=== PATIENT | male | born 1980 | race African-American/Black ===

== ENCOUNTER 2020-01-24 21:30 | Emergency (ER) | payer SELFPAY ==
[~2020-01-24] VITALS: Ht 182.9 cm; Wt 102.2 kg
[2020-01-24 21:41] VITALS: BP 194/121
[2020-01-24] MEDS ORDERED: KETOROLAC TROMETHAMINE 10 MG TABLET PO STA (21:59)
[2020-01-24] MEDS ORDERED: MAG HYDROX/ALUMINUM HYD/SIMETH 30 ML ORAL.SUSP PO ONE (22:00)
[2020-01-24] MEDS ORDERED: LIDOCAINE 2% VISCOUS 15 ML SOLUTION. SWSW ONE (22:00)
[2020-01-24] MEDS ORDERED: AMOX1TAB61 PO (22:02)
--- NOTE | 2020-01-24 22:03 | PHYS DOC ---
Adult General Chief Complaint Chief Complaint: DENTAL PROBLEM [facility] HPI Patient is a 39 year old male who presents with dental pain that started last night. The patient has also had lower right facial swelling and rates his pain as 9/10 in severity. He states he has been taking Ibuprofen at home but that has not been helping. He states he has a dentist that he can see tomorrow. Complete ROS were reviewed and found to be within normal limits, except as documented in the HPI Allergies Allergies Allergies Coded Allergies Type Severity Reaction Last Updated Verified codeine Allergy Unknown 01/24/20 Yes Physical Exam Physical Exam Constitutional: Well developed, well nourished, no acute distress, non-toxic appearance. [] HENT: Normocephalic, atraumatic, bilateral external ears normal, oropharynx mo ist, no oral exudates, nose normal. Cavitation and edema to Tooth # 32. Cardiovascular:Heart rate regular rhythm, no murmur [] Lungs & Thorax: Bilateral breath sounds clear to auscultation [] Neurologic: Alert and oriented X 3, normal motor function, normal sensory function, no focal deficits noted. [] Psychologic: Affect normal, judgement normal, mood normal. [] EKG EKG [] Radiology/Procedures Radiology/Procedures [] Course & Med Decision Making Course & Med Decision Making Pertinent Labs and Imaging studies reviewed. (See chart for details) Will give Toradol and Dental balls in ER and place on Augmentin. Dragon Disclaimer Dragon Disclaimer This electronic medical record was generated, in whole or in part, using a voice recognition dictation system. Departure Departure Impression: Primary Impression: Infected dental caries Disposition: 01 HOME, SELF-CARE Condition: STABLE Referrals: UNKNOWN PCP NAME (PCP) Patient Instructions: Carbamide Peroxide dental solution, Dental Abscess Additional Instructions: Thank you for visiting [facility]. We appreciate you trusting us with your care. If any additional problems come up don't hesitate to return to visit us. Please follow up with your primary care provider so they can plan additional care if needed and know about the problem that you had. If symptoms worsen come back to the Emergency Department. Any concerning symptoms that start such as chest pain, shortness of air, weakness or numbness on one side of the body, running high fevers or any other concerning symptoms return to the ER. You have been prescribed an antibiotic today to help fight your infection. Arnol jasso take all of the antibiotic as directed. If after 48 hours the infection is not improving, please return for more care. If the infection worsens, return to ER for additional care. Scripts Amoxicillin/Potassium Clav (AUGMENTIN 875-125 TABLET) 1 Each Tablet 1 TAB PO BID for 10 Days, #20 TAB 0 Refills Prov: EMILEE PARIKH APRN 01/24/20 EMILEE PARIKH APRN Jan 24, 2020 22:03
== END 2020-01-24 22:14 | disposition home or self-care (01) ==
LOC: ER 21:30
DX: K02.9 Dental caries, unspecified (principal); K08.89 Other specified disorders of teeth and supporting structures; Z88.5 Allergy status to narcotic agent
CPT/HCPCS: 99283

== ENCOUNTER 2020-08-27 23:56 | Emergency (ER) | payer SELFPAY ==
[~2020-08-27] VITALS: Ht 182.9 cm; Wt 97.7 kg
[~2020-08-27 23:56] MED LIST: AMOX1TAB61 PO
[2020-08-28 00:02] VITALS: BP 151/103
[2020-08-28] MEDS ORDERED: CYCL10TA2 PO (00:27)
[2020-08-28] MEDS ORDERED: TRAM-48 PO (00:28)
--- NOTE | 2020-08-28 00:29 | PHYS DOC ---
Past Medical History Past Medical History: Hypertension Past Surgical History: Other Additional Past Surgical Histo: JAW FRACTURE, CYST REMOVED R SHOULDER, L KNEE SCOPE Smoking Status: Never Smoker Alcohol Use: None General Adult EDM: Chief Complaint: BACK PAIN OR INJURY HPI: HPI: Patient is a 40 year old male presents for evaluation of lower back pain. Patient states he feel 4-5 feet on to his lower back. Patient complains of pain lumbar paraspinal l4-l5. No midline tenderness step off or deformities Patient ambulated into the ER-- no loss of b/b. Patient also has cracked tooth right upper canine. Patient states he chipped tooth when he fell. Patient denies any LOC. Review of Systems: Review of Systems: Constitutional: Denies fever or chills. [] Eyes: Denies change in visual acuity. [] HENT: Denies nasal congestion or sore throat. [positive dental pain] Respiratory: Denies cough or shortness of breath. [] Cardiovascular: Denies chest pain or edema. [] GI: Denies abdominal pain, nausea, vomiting, bloody stools or diarrhea. [] : Denies dysuria. [] Musculoskeletal: positive back pain Integument: Denies rash. [] Neurologic: Denies headache, focal weakness or sensory changes. [] Endocrine: Denies polyuria or polydipsia. [] Lymphatic: Denies swollen glands. [] Psychiatric: Denies depression or anxiety. [] Heart Score: Risk Factors: Risk Factors: DM, Current or recent (<one month) smoker, HTN, HLP, family history of CAD, obesity. Risk Scores: Score 0 - 3: 2.5% MACE over next 6 weeks - Discharge Home Score 4 - 6: 20.3% MACE over next 6 weeks - Admit for Clinical Observation Score 7 - 10: 72.7% MACE over next 6 weeks - Early Invasive Strategies Current Medications: Current Medications Medications (Trade) Dose Ordered Sig/Manda Start Time Stop Time Status Last Admin Dose Admin Cyclobenzaprine HCl (Flexeril) 10 mg 1X ONCE 08/28/20 00:30 08/28/20 00:31 UNV Tramadol HCl (Ultram) 50 mg 1X ONCE 08/28/20 00:30 08/28/20 00:31 UNV Allergies: Allergies: Allergies Coded Allergies Type Severity Reaction Last Updated Verified codeine Allergy Unknown 01/24/20 Yes Physical Exam: PE: Constitutional: Well developed, well nourished, no acute distress, non-toxic appearance. [] HENT: Normocephalic, atraumatic, bilateral external ears normal, oropharynx moist, no oral exudates, nose normal. [cracked tooth right upper canine] Eyes: PERRLA, EOMI, conjunctiva normal, no discharge. [] Neck: Normal range of motion, no tenderness, supple, no stridor. [] Cardiovascular:Heart rate regular rhythm, no murmur [] Lungs & Thorax: Bilateral breath sounds clear to auscultation [] Abdomen: Bowel sounds normal, soft, no tenderness, no masses, no pulsatile ronaldo s. [] Skin: Warm, dry, no erythema, no rash. [] Back: No tenderness, no CVA tenderness. [paraspinal tenderness l4-l5. no midline step off or deformities] Extremities: No tenderness, no cyanosis, no clubbing, ROM intact, no edema. [] Neurologic: Alert and oriented X 3, normal motor function, normal sensory function, no focal deficits noted. [no saddle anesthesia no loss of b/b] Psychologic: Affect normal, judgement normal, mood normal. [] Current Patient Data: Vital Signs: Vital Signs Date Time Temp Pulse Resp B/P (MAP) Pulse Ox O2 Delivery O2 Flow Rate FiO2 08/28/20 00:02 98.3 89 16 151/103 (119) 98 Room Air 98.3 EKG: EKG: [] Radiology/Procedures: Radiology/Procedures: [] Course & Med Decision Making: Course & Med Decision Making Pertinent Labs and Imaging studies reviewed. (See chart for details) []treated with ultram and flexeril. Xray negative for acute fracture--- unknown radiopaque suprapubic. Rx ultram and flexeril. Dragon Disclaimer: [employer] Disclaimer: This electronic medical record was generated, in whole or in part, using a voice recognition dictation system. Departure Departure Impression: Primary Impression: Back pain Additional Impression: Fracture, avulsion, tooth Disposition: HOME, SELF-CARE Condition: STABLE Referrals: UNKNOWN PCP NAME (PCP) Patient Instructions: Back Pain, Adult, Dental Pain Scripts Tramadol Hcl (ULTRAM) 50 Mg Tablet 1 TAB PO PRN Q6HRS PRN for pain MDD 4 Tablet(s) for 7 Days, #28 TAB 0 Refills Prov: LIZ HERRERA DO 08/28/20 Cyclobenzaprine Hcl (CYCLOBENZAPRINE HCL) 10 Mg Tablet 10 MG PO TID, #20 TAB Prov: LIZ HERRERA DO 08/28/20 Justicifation of Admission Dx: Justifications for Admission: Justification of Admission Dx: N/A LIZ HERRERA DO Aug 28, 2020 00:29
[2020-08-28] MEDS ORDERED: CYCLOBENZAPRINE 10 MG TABLET. PO ONE (01:00)
[2020-08-28] MEDS ORDERED: traMADol 50 MG TABLET PO ONE (01:00)
--- NOTE | 2020-08-28 07:50 | RAD ---
EXAM: AP, lateral and lumbosacral spot views of the lumbar spine DATE: 08/28/2020 12:17 AM INDICATION: Reason: fall back pain - IMAGES DONE STANDING PT SAID NO HX SX, CK 4 EXT OBJ NONE? / Spl. Instructions: / History: COMPARISON: No Prior FINDINGS: Exam is limited by motion artifact. 5 nonrib-bearing lumbar-type vertebral bodies. Vertebral body heights and disc heights are preserved. No spondylolisthesis. No acute fracture. Moderate colonic stool content. Nonspecific radiopaque density projecting over the pelvis. IMPRESSION: 1. Negative acute fracture or subluxation. 2. Cylindrical/rectangular radiopaque density projecting over the pelvis of uncertain clinical significance, possibly within the soft tissues or external. Electronically signed by: Lewis Castellanos MD (08/28/2020 7:48 AM) [id number]
== END 2020-08-28 01:52 | disposition home or self-care (01) ==
LOC: ER 23:56
DX: S02.5XXA Fracture of tooth (traumatic), initial encounter for closed fracture (principal); M54.5 Low back pain; I10 Essential (primary) hypertension; Z98.890 Other specified postprocedural states; Z88.5 Allergy status to narcotic agent; W18.39XA Other fall on same level, initial encounter; Y93.89 Activity, other specified; Y92.89 Other specified places as the place of occurrence of the external cause; Y99.8 Other external cause status
CPT/HCPCS: 72100; 99283

== ENCOUNTER 2020-11-27 04:07 | Emergency (ER) | payer SELFPAY ==
[~2020-11-27] VITALS: Ht 182.9 cm; Wt 97.7 kg
[~2020-11-27 04:07] MED LIST changes: +CYCL10TA2 PO; +TRAM-48 PO
[2020-11-27 04:54] VITALS: BP 206/98
[2020-11-27] MEDS ORDERED: ACETAMINOPHEN 500 MG TABLET PO ONE (05:00)
--- NOTE | 2020-11-27 05:12 | PHYS DOC ---
Past Medical History Past Medical History: Hypertension Past Surgical History: Other Additional Past Surgical Histo: JAW FRACTURE, CYST REMOVED R SHOULDER, L KNEE SCOPE Smoking Status: Never Smoker Alcohol Use: None General Adult EDM: Chief Complaint: HAND PROBLEM HPI: HPI: Patient is a 40 year old male who was helping a family member toe and his left second and third fingers got caught in the erickson and hyperextended. Patient complains of moderate at rest and severe pain primarily in the left index finger but is worse with range of motion and palpation. Patient is right-handed male. Patient is unable to flex his left index finger. Patient denies any numbness or tingling or any other symptoms. The pain is described as a throbbing discomfort Review of Systems: Review of Systems: Constitutional: Denies fever or chills. [] Eyes: Denies change in visual acuity. [] HENT: Denies nasal congestion or sore throat. [] Respiratory: Denies cough or shortness of breath. [] Cardiovascular: Denies chest pain or edema. [] GI: Denies abdominal pain, nausea, vomiting, bloody stools or diarrhea. [] : Denies dysuria. [] Musculoskeletal: Denies back pain but has left index and ring finger pain Integument: Denies rash. [] Neurologic: Denies headache, focal weakness or sensory changes. [] Endocrine: Denies polyuria or polydipsia. [] Lymphatic: Denies swollen glands. [] Psychiatric: Denies depression or anxiety. [] Heart Score: Risk Factors: Risk Factors: DM, Current or recent (<one month) smoker, HTN, HLP, family history of CAD, obesity. Risk Scores: Score 0 - 3: 2.5% MACE over next 6 weeks - Discharge Home Score 4 - 6: 20.3% MACE over next 6 weeks - Admit for Clinical Observation Score 7 - 10: 72.7% MACE over next 6 weeks - Early Invasive Strategies Current Medications: Current Medications Medications (Trade) Dose Ordered Sig/Manda Start Time Stop Time Status Last Admin Dose Admin Acetaminophen (Tylenol) 1,000 mg 1X ONCE 11/27/20 05:00 11/27/20 05:01 DC Allergies: Allergies: Allergies Coded Allergies Type Severity Reaction Last Updated Verified codeine Allergy Intermediate 08/28/20 Yes Physical Exam: PE: Constitutional: Well developed, well nourished, no acute distress, non-toxic appearance. [] HENT: Normocephalic, atraumatic, bilateral external ears normal, no trismus nose normal. [] Eyes: PERRLA, EOMI, conjunctiva normal, no discharge. [] Neck: Normal range of motion, no tenderness, supple, no stridor. [] Cardiovascular:Heart rate regular rhythm, peripheral pulse intact cap refill less than 2 seconds Lungs & Thorax: Bilateral breath sounds clear, no respiratory distress Abdomen: soft, no tenderness, no masses, no pulsatile masses. [] Skin: Warm, dry, no erythema, no rash. [] Back: No tenderness, no CVA tenderness. [] Extremities: Mild tenderness to palpate left middle finger, tenderness to palpate left index finger with inability to flex the left index finger. Sensation intact distally. Cap refill less than 2 seconds Neurologic: Alert and oriented X 3, normal motor function, normal sensory function, no focal deficits noted. [] Psychologic: Affect normal, judgement normal, mood normal. [] Current Patient Data: Labs: Current Medications Medications (Trade) Dose Ordered Sig/Manda Route PRN Reason Start Time Stop Time Status Last Admin Dose Admin Acetaminophen (Tylenol) 1,000 mg 1X ONCE PO 11/27/20 05:00 11/27/20 05:01 DC Vital Signs: Vital Signs Date Time Temp Pulse Resp B/P (MAP) Pulse Ox O2 Delivery O2 Flow Rate FiO2 11/27/20 04:54 97.9 121 16 206/98 (134) 100 Room Air 97.9 EKG: EKG: [] Radiology/Procedures: Radiology/Procedures: [][facility] [address] [place] [address] IMAGING REPORT Signed PATIENT: SRIRAM RODRIGUEZ ACCOUNT: [id number] : 1980 LOCATION: ER AGE: 40 SEX: M EXAM STATUS: REG ER ORD. PHYSICIAN: YESI BLANCO MD REASON: LEFT 2ND/ 3RD FINGER PAIN PROCEDURE: FINGER(S) LEFT XR FINGER(S)_LEFT 2+VIEWS_RT 11/27/2020 5:09 AM INDICATION: Left second and third finger pain COMPARISON: None available. TECHNIQUE: 3 views the left hand are provided. FINDINGS/ IMPRESSION: 1. There is no acute fracture or dislocation. Mild joint space narrowing with subcortical sclerosis involving the first metatarsophalangeal joint, second digit proximal interphalangeal joint and fifth digit distal interphalangeal join t compatible with mild osteoarthrosis. Bone mineralization is within normal limits. Regional soft tissues are within normal limits. There is no soft tissue gas or osseous erosion. No radiopaque foreign body. Electronically signed by: Patricia Hardy MD (11/27/2020 5:35 AM) [facility] DICTATED and SIGNED BY: PATRICIA HARDY MD DATE: 11/27/20 [id number] 0 Course & Med Decision Making: Course & Med Decision Making Pertinent Labs and Imaging studies reviewed. (See chart for details) [] 40-year-old male presents with signs and symptoms consistent with a flexor tendon rupture of his left index finger. Patient was placed in a aluminum foam splint by me, examined by me after application, neurovascular intact distally. Discussed with patient need for follow-up with a hand surgeon. Return precautions given. Patient also found to have high blood pressure, he took his blood pressure meds just prior to arrival. Dragon Disclaimer: [employer] Disclaimer: This electronic medical record was generated, in whole or in part, using a voice recognition dictation system. Departure Departure Impression: Primary Impression: Unspecified injury of flexor muscle, fascia and tendon of left index finger at wrist and hand level, initial encounter Disposition: 01 DC HOME SELF CARE/HOMELESS Condition: STABLE Referrals: UNKNOWN PCP NAME (PCP) [facility] hand surgery: Appointments may be made with Shalom Vazquez MD, Tony Parrish MD, Kulwant Esparza MD or Yanna Mcdowell MD, by calling [phone]. FOLLOW UP WITHIN 3 DAYS Patient Instructions: Tendon Injury Additional Instructions: EMERGENCY DEPARTMENT GENERAL DISCHARGE INSTRUCTIONS THANK YOU for coming to [facility] Emergency Department (ED) today and trusting us with your care. We trust that you had a positive experience in our Emergency Department. If you wish to speak to the department Management you can contact the chief librarian circulation department at . YOUR FOLLOW UP INSTRUCTIONS ARE FOLLOWS: Do you have a private doctor? If you do not have a private doctor, please ask for a resource list of physicians or clinics that may be able to assist you with follow up care. The Emergency Physician has interpreted your x-rays. The X-ray specialist will also review them. If there is a change in the findings you will be notified in 48 hours when at all possible. A lab test or lab culture may have been done, your results will be reviewed and you will be notified if you need a change in treatment. ADDITIONAL INSTRUCTIONS AND INFORMATION Your care today has been supervised by a physician who is specially trained in emergency care. Many problems require more than one evaluation for a complete diagnosis and treatment. We recommend that you schedule your follow up appointment as recommended to ensure complete treatment of your illness or injury. If you are unable to obtain follow up care and continue to have a problem, or if your condition worsens we recommend that you return to the ED. We are not able to safely determine your condition over the phone nor are we able to give sound medical advice over the phone. For these safety reasons, if you call for medical advice we will ask you to come to the ED for further evaluation If you have any questions regarding these discharge instructions please call the ED at . SAFETY INFORMATION In the interest of safety, wellness, and injury prevention; we encourage you to wear your seatbelt, if you smoke; quit smoking, and we encourage your family to use protective helmet for bicycling and other sporting events that present an increased risk for head injury. IF YOUR SYMPTOMS WORSEN OR NEW SYMPTOMS DEVELOP, OR YOU HAVE CONCERNS ABOUT YOUR CONDITION; OR IF YOUR CONDITION WORSENS WHILE YOU ARE WAITING FOR YOUR FOLLOW UP APPOINTM ENT; EITHER CONTACT YOUR PRIMARY CARE DOCTOR, THE PHYSICIAN WHOSE NAME AND NUMBER YOU WERE GIVEN, OR RETURN TO THE ED IMMEDIATELY. Scripts Tramadol Hcl (TRAMADOL HCL) 50 Mg Tablet 50 MG PO Q6HRS PRN for PAIN, #15 TAB Prov: YESI BLANCO MD 11/27/20 YESI BLANCO MD Nov 27, 2020 05:12
[2020-11-27] MEDS ORDERED: TRAM50TA PO (05:32)
--- NOTE | 2020-11-27 05:37 | RAD ---
XR FINGER(S)_LEFT 2+VIEWS_RT 11/27/2020 5:09 AM INDICATION: Left second and third finger pain COMPARISON: None available. TECHNIQUE: 3 views the left hand are provided. FINDINGS/ IMPRESSION: 1. There is no acute fracture or dislocation. Mild joint space narrowing with subcortical sclerosis i nvolving the first metatarsophalangeal joint, second digit proximal interphalangeal joint and fifth d igit distal interphalangeal joint compatible with mild osteoarthrosis. Bone mineralization is within normal limits. Regional soft tissues are within normal limits. There is no soft tissue gas or osseous erosion. No radiopaque foreign body. Electronically signed by: Birdie Soni MD (11/27/2020 5:35 AM) SUSAN
== END 2020-11-27 05:36 | disposition home or self-care (01) ==
LOC: ER 04:07
DX: S69.82XA Other specified injuries of left wrist, hand and finger(s), initial encounter (principal); I10 Essential (primary) hypertension; Z98.890 Other specified postprocedural states; Y29.XXXA Contact with blunt object, undetermined intent, initial encounter; Y93.89 Activity, other specified; Y92.89 Other specified places as the place of occurrence of the external cause; Y99.8 Other external cause status
CPT/HCPCS: 29130; 73140; 99283